=== PATIENT | female | born 1975 | race African-American/Black ===

== ENCOUNTER 2017-05-13 16:42 | Emergency (ER) | payer MEDICAID ==
[~2017-05-13] VITALS: Ht 160 cm; Wt 53.0 kg
[2017-05-13] MEDS ORDERED: MECLIZINE 12.5MG TABLET PO ONE (22:45)
[2017-05-13] MEDS ORDERED: KETOROLAC 60MG/2ML VIAL IM ONE (22:45)
[2017-05-13] MEDS ORDERED: MECLIZINE 25MG TABLET PO ONE (23:00)
[2017-05-14 00:02] VITALS: BP 137/81
== END 2017-05-14 00:33 | disposition home or self-care (01) ==
LOC: ER 19:11
DX: R51 Headache (principal); R11.0 Nausea; H53.149 Visual discomfort, unspecified
CPT/HCPCS: 81025; 96372; 99283; J1885; Z7610; J8597

== ENCOUNTER 2017-11-13 20:32 | Emergency (ER) | payer MEDICAID ==
[2017-11-13] MEDS ORDERED: CYCLOBENZAPRINE 10MG TABLET PO ONE (22:30)
[2017-11-13 22:48] VITALS: BP 135/66
== END 2017-11-14 05:25 | disposition home or self-care (01) ==
LOC: ER 20:32
DX: S93.602A Unspecified sprain of left foot, initial encounter (principal); M62.838 Other muscle spasm; M54.2 Cervicalgia; M54.5 Low back pain; Z82.49 Family history of ischemic heart disease and other diseases of the circulatory system; W17.1XXA Fall into storm drain or manhole, initial encounter; Y93.89 Activity, other specified; Y92.89 Other specified places as the place of occurrence of the external cause
CPT/HCPCS: 99283

== ENCOUNTER 2024-08-31 20:34 | Emergency (ER) | payer MEDICAID ==
[~2024-08-31] VITALS: Ht 160 cm; Wt 80.2 kg
[2024-08-31 20:46] VITALS: O2SAT 99
[2024-08-31] MEDS: LOSARTAN 50 MG TABLET PO ONE (22:15)
[2024-08-31 23:16] VITALS: RESP 18; TEMP 36.6
[2024-08-31 23:42] VITALS: BP 170/87; PULSE 88; O2SAT 100
== END 2024-09-01 00:03 | disposition home or self-care (01) ==
LOC: ER 20:34
DX: I10 Essential (primary) hypertension (principal); F41.9 Anxiety disorder, unspecified; Z98.890 Other specified postprocedural states
CPT/HCPCS: 93005; 99283